=== PATIENT | female | born 1970 | race Caucasian/White ===

== ENCOUNTER 2022-01-18 08:27 | Emergency (ER) | payer MEDICAID ==
[~2022-01-18] VITALS: Ht 157.5 cm; Wt 73.0 kg
[2022-01-18 08:32] VITALS: BP 156/95
[2022-01-18] MEDS ORDERED: IBUPROFEN 400MG TABLET PO ONE (09:00)
[2022-01-18] MEDS ORDERED: IBUP-2028 MT (10:49)
== END 2022-01-18 11:20 | disposition home or self-care (01) ==
LOC: ER 08:27
DX: B34.9 Viral infection, unspecified (principal); Z20.822 Contact with and (suspected) exposure to COVID-19
CPT/HCPCS: 71045; 87070; 87426; 87430; 87804; 99284